=== PATIENT | female | born 1960 | race Hispanic/Latino ===

== ENCOUNTER → 2017-04-23 | Day surgery (SDC) | payer OTHER, BC ==
[2017-04-22 13:45] VITALS: BMI 29.7
[~2017-04-23] MED LIST: Lidocaine 1% PF 5 ML VIAL ONE; PROPOFOL 200 MG/20 ML VIAL ONE
--- NOTE | 2017-04-23 13:25 | OP ---
DATE OF PROCEDURE: 04/23/2017 SURGEON: Praveen Winchester M.D. PROCEDURE: Colonoscopy. PREOPERATIVE DIAGNOSES: 1. Colorectal cancer screening. 2. Prior history of colitis. 3. Prior history of diminutive polyp that was hyperplastic in 2009. The patient has denied previous histories of colitis. These findings have been noted on previous col onoscopy in 2009. POSTOPERATIVE DIAGNOSES: 1. Scarring in the right colon, some small pseudopolyps in the sigmoid colon as seen with previous e ndoscopy in 2009, no evidence of active colitis, no evidence of dysplasia or abnormal tissue on I sc an evaluation. 2. Diverticulosis coli in the left colon. RECOMMENDATIONS: With findings supportive of previous colitis repeat colonoscopy in 7 years. ANESTHESIA: TIVA. PROCEDURE IN DETAIL: After the patient was informed of the risks, benefits, possible complications o f endoscopy including perforation, bleeding, reactions to medication and aspiration, informed consent was obtained. The patient brought to endoscopy suite where she was sedated in gradual fashion. Onc e she was comfortable, a rectal examination was performed. The endoscope was advanced through anal c anal through the colon to cecum which was identified by ileocecal valve and appendiceal orifice. Ter levar ileum was entered and found to be normal. In the right colon, there was quite a bit of mucosal scarring consistent with previous colitis. There was no active colitis. There was no dysplastic ap pearing areas, the colon was looked at with I scan to evaluate for possible areas of dysplasia. Ther e were no polyps seen. The sigmoid colon, a few pseudopolyps was seen with previous colonoscopy in 2 010. These were not removed. These had been previously biopsied and pathology was confirmed. There is no abnormal mucosa again to suggest any dysplasia. Retroflexed views in the rectum were normal. Diverticulosis coli was noted in the sigmoid colon. The scope was removed. The patient tolerated t he procedure well with no complications.
== END ==
LOC: SDC 10:08
PROVIDERS: ATTEND Internal Medicine Gastroenterology
PROC: 0DJD8ZZ Inspection of Lower Intestinal Tract, Via Natural or Artificial Opening Endoscopic (ICD-10-PCS; principal; 2017-04-23)
DX: Z12.11 Encounter for screening for malignant neoplasm of colon (principal); K51.40 Inflammatory polyps of colon without complications; K57.30 Diverticulosis of large intestine without perforation or abscess without bleeding; Z79.899 Other long term (current) drug therapy; Z88.5 Allergy status to narcotic agent; Z90.49 Acquired absence of other specified parts of digestive tract; Z98.890 Other specified postprocedural states; Z86.010 Personal history of colon polyps
CPT/HCPCS: J2001; J2704

== ENCOUNTER 2017-08-16 14:40 | Outpatient (CLI) | payer OTHER, BC | END 2017-08-16 14:41 | disposition home or self-care (01) | LOC: BICMAMMO 14:40 | PROVIDERS: ATTEND Obstetrics & Gynecology | DX: Z12.31 Encounter for screening mammogram for malignant neoplasm of breast (principal); Z80.3 Family history of malignant neoplasm of breast | CPT/HCPCS: 77063; 77067 ==

== ENCOUNTER 2017-11-02 08:47 | Outpatient (CLI) | payer OTHER, BC ==
--- NOTE | 2017-11-02 11:25 | MRI ---
RIGHT SHOULDER MRI WITHOUT IV CONTRAST: Date: 11/02/17 HISTORY: 57-year-old female with history of right shoulder pain and limited range of motion since June. TECHNIQUE: Multiplanar, multisequence MRI examination of the right shoulder is performed. FINDINGS: Mild AC joint arthrosis with minimal downsloping of the anterior acromion. There is some linear abnor mal signal in the insertion of the supraspinatus tendon, evidence for an undersurface low grade tear with some associated delamination. There is a partially bifid biceps tendon, but no evidence of acute biceps tendon tear. There is an undersurface and delaminating tear of the subscapularis tendon. Subc hondral cyst noted involving the lesser tuberosity adjacent to the bicipital groove. Rotator cuff mus cles are within normal limits of signal and volume. Visualized labrum is unremarkable. IMPRESSION: Partially bifid biceps tendon without evidence for an acute tear. Small linear undersurface and delam inating tear of the subscapularis and supraspinatus tendons. No complete full thickness retracted tea r. Unremarkable visualized labrum. POS: [facility]
== END 2017-11-02 08:48 | disposition home or self-care (01) ==
LOC: TBSIIMAG 08:47
PROVIDERS: ATTEND Orthopaedic Surgery
DX: M25.511 Pain in right shoulder (principal); M75.101 Unspecified rotator cuff tear or rupture of right shoulder, not specified as traumatic

== ENCOUNTER 2018-04-07 09:43 | Outpatient (CLI) | payer OTHER, BC ==
[2018-04-07 10:46] LABS: #Eosinphils 0.1 thou/uL (0.0-0.7); #Lymphocytes 1.6 thou/uL (1.20-3.40); #Monocytes 0.3 thou/uL (0.11-0.59); #Neutrophils 2.9 thou/uL (1.40-6.50); %Eosinophils 1.2 % (0.0-10.0); %Lymphocytes 32.6 % (21.0-51.0); %Monocytes 5.5 % (0.0-10.0); %Neutrophils 59.7 % (42.0-75.0); Hemoglobin 12.7 g/dL (12.0-16.0); Mean Corpuscular Hemoglobin 31.1 pg (27.0-31.0); Mean Corpuscular Volume 91.7 fL (78.0-98.0); Mean Platelet Volume 7.6 fL (7.4-10.4); Platelet Count 273 thou/uL (130-400); RBC Distribution Width 10.8 % (11.5-14.5); Red Blood Cell (RBC) Count 4.08 mill/uL (4.20-5.40); White Blood Cell (WBC) Count 4.8 thou/uL (4.8-10.8)
[2018-04-07 11:07] LABS: Anion Gap 11 mmol/L (10-20); BUN (Urea Nitrogen) 26 mg/dL (9.8-20.1); Calc. Creatinine Clearance 0 mL/min (70-130); Calcium 9.4 mg/dL (7.8-10.44); Carbon Dioxide 26 mmol/L (22-29); Chloride 106 mmol/L (98-107); Estimated GFR-MDRD 72; Glucose 114 mg/dL (70-105); Potassium 3.6 mmol/L (3.5-5.1); Sodium 139 mmol/L (136-145)
--- NOTE | 2018-04-07 14:32 | EKG ---
Test Reason : Blood Pressure : / mmHG Vent. Rate : 066 BPM Atrial Rate : 066 BPM P-R Int : 166 ms QRS Dur : 082 ms QT Int : 398 ms P-R-T Axes : 062 050 045 degrees QTc Int : 417 ms Normal sinus rhythm with sinus arrhythmia Normal ECG When compared with ECG of 20-OCT-1996 12:58, No significant change was found Confirmed by MARQUIS GUAJARDO, SQuinton ([id number]) on 04/07/2018 2:32:22 PM Referred By: HARJIT Confirmed By:DR. Shira CHO MD
== END 2018-04-07 09:44 | disposition home or self-care (01) ==
LOC: LABBT 09:43
PROVIDERS: ATTEND Orthopaedic Surgery
DX: Z01.818 Encounter for other preprocedural examination (principal); M75.101 Unspecified rotator cuff tear or rupture of right shoulder, not specified as traumatic
CPT/HCPCS: 80048; 85025; 93005; 93010

== ENCOUNTER 2018-04-15 07:02 | Day surgery (SDC) | payer OTHER, BC ==
[2018-04-07 10:15] VITALS: BMI 29.9
[2018-04-15] MEDS ORDERED: Fentanyl 100 MCG/2 ML VIAL ONE (08:10)
[2018-04-15] MEDS ORDERED: Midazolam HCl 2 mg/2 ml Vial ONE (08:10)
[2018-04-15] MEDS ORDERED: HYDROcodone/Acetaminophen 5/325 mg Tablet PO PRN ×2 (08:44)
[2018-04-15] MEDS ORDERED: Ondansetron PF 4 MG/2 ML Vial IVP PRN (08:44)
[2018-04-15] MEDS ORDERED: traMADol HCl 50 MG TAB PO PRN ×2 (08:44)
[2018-04-15] MEDS ORDERED: Zolpidem Tartrate 5 MG TAB PO PRN (08:44)
[2018-04-15] MEDS ORDERED: Promethazine HCl 25 MG/ML VIAL IM PRN (08:44)
[2018-04-15] MEDS ORDERED: Ropivacaine 0.2% 550 ML 550 ML NERVE BLCK SCH (08:44)
[2018-04-15] MEDS ORDERED: CEFAZOLIN 2 GM/50 ML BAG ONE (08:49)
[2018-04-15] MEDS ORDERED: Ondansetron PF 4 MG/2 ML Vial ONE ×2 (11:17→13:03)
[2018-04-15] MEDS ORDERED: Promethazine HCl 25 MG/ML VIAL ONE (11:34)
[2018-04-15] MEDS ORDERED: Ropivacaine 0.5% HCl/PF (150 MG/30 ML VIAL) ONE (12:52)
[2018-04-15] MEDS ORDERED: Ropivacaine 0.2% HCl/PF (40 MG/20 ML VIAL) ONE (12:52)
[2018-04-15] MEDS ORDERED: Glycopyrrolate 0.2 MG/ML 5 ML SYRINGE ONE (13:03)
[2018-04-15] MEDS ORDERED: PROPOFOL 200 MG/20 ML VIAL ONE (13:03)
[2018-04-15] MEDS ORDERED: ePHEDrine/0.9% NaCl/PF SYRINGE 50 mg/10 ml ONE (13:03)
[2018-04-15] MEDS ORDERED: Lidocaine 1% PF 5 ML VIAL ONE (13:03)
--- NOTE | 2018-04-17 22:49 | OP ---
DATE OF PROCEDURE: 04/15/2018 PREOPERATIVE DIAGNOSES: Rotator cuff tear; bifid biceps versus torn biceps, right shoulder. POSTOPERATIVE DIAGNOSES: Rotator cuff tear impingement syndrome, biceps tendon appeared to be physiologic and intact and stable. PROCEDURES PERFORMED: Arthroscopic subacromial decompression, arthroscopic rotator cuff repair. ANESTHESIA: General. BLOOD LOSS: Minimal. SPECIMEN: None. DRAINS: None. COMPLICATIONS: None. DESCRIPTION OF PROCEDURE: The patient was taken to the operating room, where general anesthesia was induced. The patient was placed in left lateral decubitus position. Right arm was placed in traction, 15 pounds and prepped and draped in sterile fashion. Scope was placed in the glenohumeral joint. There was no significant arthritis. There was normal fraying of the labrum for age. The biceps tendon was stable and intact. I did not feel tenodesis was indicated. Scope was placed in subacromial bursa. Generous decompression was performed. CA ligament was taken down. Hemostasis was obtained. The patient was anterior and inferior acromioplasty rotator cuff tear. The rotator cuff tear was in substance not at the bony junction. I debrided the margins of the rotator cuff tendon tear and fixed it with 2 [id number] sutures using Orthocord suture to good watertight repair. Shoulder was then drained. Portals were closed with nylon suture. Sterile dressings were applied. Job ID: [id number]
== END 2018-04-15 14:03 | disposition home or self-care (01) ==
LOC: SDC 07:02
PROVIDERS: ATTEND Orthopaedic Surgery
DX: M75.111 Incomplete rotator cuff tear or rupture of right shoulder, not specified as traumatic (principal); M75.41 Impingement syndrome of right shoulder; Z98.51 Tubal ligation status; Z90.49 Acquired absence of other specified parts of digestive tract; Z88.5 Allergy status to narcotic agent; Z98.890 Other specified postprocedural states
CPT/HCPCS: 96374; A4306; G8984-GP-CK; G8985-GP-CK; G8986-GP-CK; J2001; J2250; J2405; J2550; J2704; J2795; J3010

== ENCOUNTER 2018-11-17 14:44 | Outpatient (CLI) | payer OTHER, BC ==
--- NOTE | 2018-11-17 16:11 | MMO ---
Bilateral MAMMO Bilat Screen [facility]. CLINICAL HISTORY: Patient is 58 years old and is seen for screening. The patient has the following family history of breast cancer: sister, malignant (generic). The patient has no personal history of cancer. VIEWS: The views performed were: bilateral craniocaudal with tomosynthesis and bilateral mediolateral oblique with tomosynthesis. FILMS COMPARED: The present examination has been compared to prior imaging studies performed at [facility] on 08/16/2017, and at [facility] on 11/29/2013, 01/30/2015 and 08/16/2016. MAMMOGRAM FINDINGS: There are scattered fibroglandular densities. There are no suspicious masses, calcifications or areas of architectural distortion. There are benign appearing calcifications in both breasts. There are no suspicious masses, suspicious calcifications, or new areas of architectural distortion. IMPRESSION: THERE IS NO MAMMOGRAPHIC EVIDENCE OF MALIGNANCY. A ROUTINE FOLLOW-UP MAMMOGRAM IN 1 YEAR IS RECOMMENDED. THE RESULTS OF THIS EXAM WERE SENT TO THE PATIENT. ACR BI-RADS Category 2 - Benign finding MAMMOGRAPHY NOTE: 1. A negative mammogram report should not delay a biopsy if a dominant of clinically suspicious mass is present. 2. Approximately 10% to 15% of breast cancers are not detected by mammography. 3. Adenosis and dense breasts may obscure an underlying neoplasm. Reported by: ANGELA CANAS MD Electonically Signed: [id number]
== END 2018-11-17 14:45 | disposition home or self-care (01) ==
LOC: BICMAMMO 14:44
PROVIDERS: ATTEND Obstetrics & Gynecology
DX: Z12.31 Encounter for screening mammogram for malignant neoplasm of breast (principal)
CPT/HCPCS: 77063; 77067

== ENCOUNTER 2019-04-13 05:46 | Day surgery (SDC) | payer OTHER, BC ==
[2019-04-13] MEDS ORDERED: EPINEPHrine 0.3 MG in Ophthalmic Irrigation Solution 500 ML IVP SCH (06:00)
[2019-04-13] MEDS ORDERED: Cyclopentolate 1% Opth Drop 2 ML BOT ONE (06:02)
[2019-04-13] MEDS ORDERED: Phenylephrine 2.5% Ophth Soln 5 ML BOT ONE (06:02)
[2019-04-13] MEDS ORDERED: Midazolam HCl 2 mg/2 ml Vial ONE (06:45)
[2019-04-13] MEDS ORDERED: Fentanyl 100 MCG/2 ML VIAL ONE (06:45)
--- NOTE | 2019-04-13 12:14 | OP ---
DATE OF PROCEDURE: 04/13/2019 PREOPERATIVE DIAGNOSIS: Vitreous opacification, left eye. POSTOPERATIVE DIAGNOSIS: Vitreous opacification, left eye. PROCEDURE PERFORMED: Pars plana vitrectomy and membrane peel, left eye. ANESTHESIA: Local with monitored anesthesia care. PROCEDURE IN DETAIL: The patient was identified in preoperative holding area. Appropriate informed consent for the planned surgical procedure on the left eye had been obtained. The patient was transported to the operative suite. Appropriate cardiopulmonary monitoring was established. Local anesthesia was obtained using retrobulbar modified Van Lint lid block using 50:50 mixture of 4% lidocaine and 0.75% bupivacaine. The patient was prepped and draped in the usual sterile manner for ophthalmic surgery of the left eye. Lid speculum was placed in the left eye. A 25-gauge trocar was placed in conjunctiva and sclera superotemporally, inferotemporally, and supranasally. Infusion line was placed inferotemporally. Light pipe and vitreous cutter were inserted into the eye. Core vitrectomy was performed. Posterior hyaloid face was elevated and peeled from the macula into the periphery using vacuum suction. The vitreous was removed. Indirect ophthalmoscopy was used to exam the retina in 360 degrees. Prophylactic laser was placed behind the sclerotomy site. Trocars were removed. Eye was noted to retain pressure well. Retrobulbar Kenalog and subconjunctival Ancef were placed. Antibiotic ointment was placed. The eye was patched and shielded. The patient was taken to postoperative recovery unit in good condition, having suffered no immediate perioperative complications. The patient was instructed to keep patch and shield on, avoid lifting or bending, and followup appointment with Dr. Sampson. Job ID: [id number]
[2019-04-13] MEDS ORDERED: Lidocaine 4% PF 5 ML AMP ONE (12:16)
[2019-04-13] MEDS ORDERED: Bupivacaine PF 0.75% SDV 10 ML ONE (12:16)
[2019-04-13] MEDS ORDERED: PROPOFOL 200 MG/20 ML VIAL ONE (12:16)
[2019-04-13] MEDS ORDERED: CEFAZOLIN 1 GM VIAL ONE (12:16)
[2019-04-13] MEDS ORDERED: Maxitrol 0.1% Opth Oint 3.5 GM TUBE ONE (12:16)
[2019-04-13] MEDS ORDERED: Triamcinolone 40 MG/ML VIAL ONE (12:16)
[2019-04-13] MEDS ORDERED: Lidocaine 1% PF 5 ML VIAL ONE (12:16)
== END 2019-04-13 08:15 | disposition home or self-care (01) ==
LOC: SDC 05:46
PROVIDERS: ATTEND Ophthalmology Retina Specialist
PROC: 08T53ZZ Resection of Left Vitreous, Percutaneous Approach (ICD-10-PCS; principal; 2019-04-13)
PROC: 08NF3ZZ Release Left Retina, Percutaneous Approach (ICD-10-PCS; principal; 2019-04-13)
DX: H43.392 Other vitreous opacities, left eye (principal); Z88.5 Allergy status to narcotic agent
CPT/HCPCS: J0171; J0690; J2001; J2250; J2704; J3010; J3301; J3490

== ENCOUNTER 2019-04-21 13:15 | Outpatient (CLI) | payer OTHER, BC ==
--- NOTE | 2019-04-21 14:31 | MRI ---
MRI Upper Ext Jt Rt WO Con History: Z 98.890 right rotator cuff repair Comparison: MRI right shoulder 2018 Findings: Biceps tendon: Moderate intra-articular tendinosis and interstitial tearing. Labrum: Mild from superior labrum without displaced tear. Rotator cuff: Mild bursal surface fraying supraspinous and infraspinatus tendon along with a focal hi gh-grade 50% bursal surface tear mid 5 mm fibers supraspinatus tendon at the footprint. Extensive adjacent interstitial type delamination. Moderate tendinosis. Mild tendinosis subscapularis tendon. Low-grade tendinosis infraspinatus tendon. Bones: Prior subacromial decompression. Large subacromial subdeltoid bursa effusion. Normal glenoid v ersion. Muscles: No significant muscle atrophy. Impression: 1. Focal 50% bursal surface tear mid 5 mm fibers supraspinatus tendon at the footprint with adjacent tendinosis and mild interstitial type tearing extending to the anterior fibers. 2. Attenuated interstitially torn intra-articular biceps tendon without subluxation. 3. Mild superior labral free edge fraying without displaced tear.
== END 2019-04-21 13:16 | disposition home or self-care (01) ==
LOC: TBSIIMAG 13:15
PROVIDERS: ATTEND Orthopaedic Surgery
DX: Z47.89 Encounter for other orthopedic aftercare (principal); M75.101 Unspecified rotator cuff tear or rupture of right shoulder, not specified as traumatic; S46.811A Strain of other muscles, fascia and tendons at shoulder and upper arm level, right arm, initial encounter; Z98.890 Other specified postprocedural states

== ENCOUNTER 2019-05-01 10:36 | Emergency (ER) | payer OTHER, BC ==
--- NOTE | 2019-05-01 12:09 | ULT ---
EXAM: Left lower extremity venous duplex: Deep veins evaluated with color Doppler, spectral analysis, and compression. INDICATIONS: Edema FINDINGS: Deep veins interrogated include common femoral vein, femoral vein, popliteal vein, and post erior tibial vein. These veins show normal compression and blood flow. No evidence of DVT. IMPRESSION: Negative Left venous duplex exam.
== END 2019-05-01 13:36 | disposition home or self-care (01) ==
LOC: ERS 10:36
DX: M79.652 Pain in left thigh (principal); F32.9 Major depressive disorder, single episode, unspecified

== ENCOUNTER 2019-11-21 09:04 | Outpatient (CLI) | payer OTHER ==
--- NOTE | 2019-11-21 10:37 | MMO ---
Bilateral MAMMO Bilat Screen [facility]. CLINICAL HISTORY: Patient is 59 years old and is seen for screening. The patient has the following family history of breast cancer: sister, malignant (generic). The patient has no personal history of cancer. VIEWS: The views performed were: bilateral craniocaudal with tomosynthesis and bilateral mediolateral oblique with tomosynthesis. FILMS COMPARED: The present examination has been compared to prior imaging studies performed at [facility] on 08/16/2017 and 11/17/2018, and at [facility] on 01/30/2015 and 08/16/2016. This study has been interpreted with the assistance of computer-aided detection. MAMMOGRAM FINDINGS: There are scattered fibroglandular densities. Benign calcifications are noted bilaterally. There are no suspicious masses, suspicious calcifications, or new areas of architectural distortion. IMPRESSION: THERE IS NO MAMMOGRAPHIC EVIDENCE OF MALIGNANCY. A ROUTINE FOLLOW-UP MAMMOGRAM IN 1 YEAR IS RECOMMENDED. THE RESULTS OF THIS EXAM WERE SENT TO THE PATIENT. ACR BI-RADS Category 2 - Benign finding MAMMOGRAPHY NOTE: 1. A negative mammogram report should not delay a biopsy if a dominant of clinically suspicious mass is present. 2. Approximately 10% to 15% of breast cancers are not detected by mammography. 3. Adenosis and dense breasts may obscure an underlying neoplasm. Reported by: YUE CARRASQUILLO MD Electonically Signed: [id number]
== END 2019-11-21 09:05 | disposition home or self-care (01) ==
LOC: BICMAMMO 09:04
PROVIDERS: ATTEND Obstetrics & Gynecology
DX: Z12.31 Encounter for screening mammogram for malignant neoplasm of breast (principal); Z80.3 Family history of malignant neoplasm of breast
CPT/HCPCS: 77063; 77067

== ENCOUNTER 2021-01-03 08:40 | Outpatient (CLI) | payer OTHER | END 2021-01-03 08:41 | disposition home or self-care (01) | LOC: BICMAMMO 08:40 | PROVIDERS: ATTEND Obstetrics & Gynecology | DX: Z12.31 Encounter for screening mammogram for malignant neoplasm of breast (principal); Z80.3 Family history of malignant neoplasm of breast | CPT/HCPCS: 77063; 77067 ==